=== PATIENT | female | born 1945 | race Caucasian/White ===

== ENCOUNTER → 2016-11-14 | Outpatient (CLI) | payer MEDICARE ==
[~2016-11-14] MED LIST: ASPI-482 PO; ATEN25TA PO; ATOR20TA PO; DILT120T3 PO; LEVO150T PO; MULT-35 PO; OMEG300C PO; WARF4TAB PO; WARF5TAB7 PO
[2016-11-14 11:09] VITALS: BP 96/76
--- NOTE | 2016-11-14 12:45 | RAD ---
PROCEDURE MR of the right shoulder HISTORY Chronic right shoulder pain. History of right rotator cuff repair and AC joint, removal of clavicle. COMPARISON October 22, 2005. TECHNIQUE Standard noncontrast images are obtained. FINDINGS Extensive postsurgical artifact identified at the rotator cuff and acromioclavicular joint. This completely obscures the attachment of the supraspinatus and infraspinatus tendons, and therefore their integrity cannot be determined. The subscapularis tendon appears intact. No large subdeltoid bursal effusion. Mild rotator cuff muscle fatty infiltration without much volume loss. The humerus is high-riding, appears similar to the previous exam. No significant glenohumeral joint effusion. Mild signal at the superior labrum, coronal series 6, image 11 and 12, raising the question of a small tear but due to the artifact this is not certain. Biceps tendon is mostly obscured by the artifact. No evidence of bone destruction or acute fracture. No acute soft tissue edema or fluid collection. IMPRESSION 1. The supraspinatus and infraspinatus tendons are completely obscured by surgical artifact, therefore a tear is not excludable. Note that the humerus is high-riding, similar to the prior study. No evidence of subscapularis tendon tear. Conventional arthrogram could potentially provide additional information regarding supraspinatus and infraspinatus integrity, if indicated. 2. Mild signal at the superior labrum raising the question of a small tear, although note that artifact could contribute to this appearance. Electronically signed by: Benjamin Rapp MD (Nov 14, 2016 12:44:12)
== END | disposition home or self-care (01) ==
LOC: MRI 10:30
PROVIDERS: ATTEND Nurse Practitioner Gerontology
DX: M75.101 Unspecified rotator cuff tear or rupture of right shoulder, not specified as traumatic (principal)
CPT/HCPCS: 73221

== ENCOUNTER 2018-02-07 11:00 | Emergency (ER) | payer MEDICARE | END 2018-02-07 12:24 | disposition home or self-care (01) | LOC: ER 12:24 | DX: S80.922A Unspecified superficial injury of left lower leg, initial encounter (principal); E78.00 Pure hypercholesterolemia, unspecified; I10 Essential (primary) hypertension; E03.9 Hypothyroidism, unspecified; I48.91 Unspecified atrial fibrillation; Z95.0 Presence of cardiac pacemaker; Z90.710 Acquired absence of both cervix and uterus; Z90.49 Acquired absence of other specified parts of digestive tract; Z88.0 Allergy status to penicillin; W22.8XXA Striking against or struck by other objects, initial encounter; Y93.9 Activity, unspecified; Y92.89 Other specified places as the place of occurrence of the external cause; Y99.9 Unspecified external cause status | CPT/HCPCS: 73590; 99284 ==